=== PATIENT | male | born 1960 | race Caucasian/White ===

== ENCOUNTER 2024-06-19 08:33 | Day surgery (SDC) | payer OTHER, SELFPAY ==
[2024-06-17 14:39] VITALS: BMI 30.7
--- NOTE | 2024-06-18 10:02 | P.CONAN_ITS ---
Documented by User: Norma Miller NP 06/18/24 10:02 HPI - Anesthesia Eval Consult details Narrative: 64yo M for Colonoscopy [facility] Past Medical History Medical History IBS (irritable bowel syndrome) BPH (benign prostatic hyperplasia) Elevated cholesterol HTN (hypertension) Asthma Surgical History Surgical History History of esophagogastroduodenoscopy (EGD) H/O colonoscopy Social History Social History Household Members: Spouse Are you a primary early breastfeeding care specialist to a significant other at home: No Do you presently have visiting nurse or other home services: No Patient Tobacco Use Status: Former Tobacco user Tobacco use type: Cigarette Years Smoked: 25 Smoked in Last 30 Days: No Use of substances other than those prescribed or required for medical reasons: No Have you been hit, kicked, punched, or otherwise hurt by someone within the past year? If so, by whom?: No Are you DNR?: No Advance Directives: No Advance Directives Information Provided: Yes Recently lost weight without trying: No How much weight loss: Not applicable Eating poorly because of decreased appetite: No Nutrition screen score: 0 Nutrition Risks: No Nutritional Risk Poor oral hygiene: Yes (Missing tooth x1) Meds Allergies Allergy/AdvReac Type Severity Reaction Status Date / Time pseudoephedrine Allergy Intermediate Confusion Verified 06/19/24 09:24 [From [facility]] Seasonal Allergies Allergy Unknown Unknown Verified 06/19/24 09:24 Home Medications ?Medication ?Instructions ?Recorded ?Confirmed ?Last Taken ?Type aspirin 81 mg tablet,delayed 81 mg PO DAILY 06/17/24 06/19/24 06/12/24 History release atenolol 25 mg tablet 25 mg PO DAILY 06/17/24 06/19/24 06/19/24 History famotidine 10 mg tablet (Pepcid AC) 10 mg PO BID 06/17/24 06/19/24 Unknown Hist ory multivitamin 1 tab PO DAILY 06/17/24 06/19/24 Unknown History Exam Height,Weight and Vital Signs: Height 5 ft 8 in Weight 91.739 kg Assessment and Plan Assessment Anesthesia Assessment: Chart Reviewed Documented by User: Rose Byers MD 06/19/24 10:16 PMF Past Medical History Medical History IBS (irritable bowel syndrome) BPH (benign prostatic hyperplasia) Elevated cholesterol HTN (hypertension) Asthma Family History Family history of problems with anesthesia: No Surgical History Surgical History History of esophagogastroduodenoscopy (EGD) H/O colonoscopy History of Problems with Anesthesia: No Social History Social History Household Members: Spouse Are you a primary early breastfeeding care specialist to a significant other at home: No Do you presently have visiting nurse or other home services: No Patient Tobacco Use Status: Former Tobacco user Tobacco use type: Cigarette Years Smoked: 25 Smoked in Last 30 Days: No Use of substances other than those prescribed or required for medical reasons: No Have you been hit, kicked, punched, or otherwise hurt by someone within the past year? If so, by whom?: No Are you DNR?: No Advance Directives: No Advance Directives Information Provided: Yes Recently lost weight without trying: No How much weight loss: Not applicable Eating poorly because of decreased appetite: No Nutrition screen score: 0 Nutrition Risks: No Nutritional Risk Poor oral hygiene: Yes (Missing tooth x1) Meds Allergies Allergy/AdvReac Type Severity Reaction Status Date / Time pseudoephedrine Allergy Intermediate Confusion Verified 06/19/24 09: [From [facility]] Seasonal Allergies Allergy Unknown Unknown Verified 06/19/24 09:24 Home Medications ?Medication ?Instructions ?Recorded ?Confirmed ?Last Taken ?Type aspirin 81 mg tablet,delayed 81 mg PO DAILY 06/17/24 06/19/24 06/12/24 History release atenolol 25 mg tablet 25 mg PO DAILY 06/17/24 06/19/24 06/19/24 History famotidine 10 mg tablet (Pepcid AC) 10 mg PO BID 06/17/24 06/19/24 Unknown History multivitamin 1 tab PO DAILY 06/17/24 06/19/24 Unknown History Exam Airway Mallampati Class: II TM Dist: >3cm Neck ROM: Full Heart: rrr Lungs: cta Assessment and Plan Assessment Anesthesia Assessment: Anesthesia Plan Discussed Final Anesthetic Review Family History of Problems with Anesthesia: No History of Problems with Anesthesia: No NPO: Yes ASA Class: II Final Preanesthetic Review: No Changes in Pt Med Stat, Meds/Allgs Chart Reviewed, Consent Obtained/Reviewed and Anes Risks/Benef Reviewed Patient Risk: Low Procedure Risk: Low Anesthetic Plan Anesthetic Plan: MAC: Disposition: Standard PACU
[2024-06-19 09:19] VITALS: BP 188/91; PULSE 65; RESP 16; TEMP 36.6; O2SAT 99; BMI 28.3
[2024-06-19] MEDS: Lactated Ringers 1,000 ML 100 ML IVCONT (09:33)
[2024-06-19 11:22] VITALS: BP 131/74; PULSE 69; RESP 17; TEMP 36.7; O2SAT 98
--- NOTE | 2024-06-19 11:25 | PM.OP ---
Brief Operative Note Date of Service: 06/19/24 Pre-op diagnosis: Screening Post-op diagnosis: other (Colon polyps) Procedure: Colonoscopy to the cecum with biopsies, cold snare polypectomy, and marking with submucosal ink Surgeon: Jayden Quick MD Anesthesia: MAC Was an Director Facilities Maintenance used for this Procedure?: No Estimated blood loss (mL): 2.0 Pathology: other (A. Ascending colon polyp B. Mid-ascending colon polyp) Condition: stable Disposition: PACU
[2024-06-19 11:40] VITALS: BP 144/83; PULSE 64; RESP 18; TEMP 36.7; O2SAT 98
--- NOTE | 2024-06-19 12:01 | OP_ITS ---
DATE OF SERVICE: 06/19/2024 SURGEON: Jayden Quick MD INDICATIONS: The patient presents for followup of personal history of colon polyps, family history of colon cancer, and colorectal cancer screening. Full consent has been obtained from him for this, including risks of bleeding and perforation. PREOPERATIVE DIAGNOSIS: POSTOPERATIVE DIAGNOSIS: PROCEDURE PERFORMED: Colonoscopy to the cecum with cold snare polypectomy x1, biopsies of ascending colon polyp, and submucosal marking with ink. ESTIMATED BLOOD LOSS: COMPLICATIONS: ANESTHESIA: Monitored anesthesia care. ASSISTANTS: SPECIMENS: PREOPERATIVE DIAGNOSES: Colorectal cancer screening, personal history of colon polyps, and family history of colon cancer. POSTOPERATIVE DIAGNOSES: Colorectal cancer screening, personal history of colon polyps, and family history of colon cancer, small ascending colon polyp, flat ascending colon polyp, diverticulosis, internal hemorrhoids. DESCRIPTION OF PROCEDURE: The patient was placed in the left lateral decubitus position. The digital rectal exam revealed no abnormalities. The [employer] video pediatric colonoscope was entered into the rectum and advanced easily to the cecum. Once in the cecum, I did identify normal-appearing cecal pouch with appendiceal orifice and a normal-appearing ileocecal valve. The entire cecum and ileocecal valve appeared normal. There was transillumination of light deep in the right lower quadrant. The scope was then slowly withdrawn assessing all mucosal surfaces carefully. Preparation was excellent. In the ascending colon, there was an approximately 6 mm polyp, which was removed by cold snare polypectomy and recovered by suction. The polypectomy site appeared clean, without any sign of residual polyp nor significant bleeding. In what appeared to be the mid-ascending colon, approximately 4 or 5 folds from the ileocecal valve, was a flat and slightly raised polypoid area encompassing approximately 1/3 to 1/2 the circumference of the bowel along a fold. Part of it was somewhat firm and minimally friable. There was no ulceration. Attempts to snare portions were not successful given its flat nature and broad-base. I did obtain multiple biopsies from it including portions from where it appeared to be rather hard and friable. I then placed a submucosal ink ibis just proximal and just distal to it as well. I did not visualize any other polyps, colitis, nor angiodysplasias in the colon. There was a mild amount of sigmoid diverticulosis. In the rectum, scope was retroflexed visualizing some internal hemorrhoids, but no other pathology. The rectal mucosa appeared normal. The scope was straightened and withdrawn from the patient. He tolerated the procedure well and was returned to recovery area in stable condition. IMPRESSION: 1. Colon polyps. 2. Diverticulosis. 3. Internal hemorrhoids. PLAN: The results of the biopsies will be checked. In regard to the flat ascending colon polyp, we shall await the biopsies and then decide about further options of removing it, i.e., either surgically or by repeat colonoscopy. He was advised not to use any aspirin or NSAIDs for 1 week. This has been discussed with his . In regard to his reflux, he reports he is using [id number] Pepcid, but without any relief. I shall send over a prescription for a PPI for him to try. His upper endoscopy in 2019 at [facility] was unremarkable according to the report. MD GEMMA Pina/YESENIA / [id number] MTDD
== END 2024-06-19 12:00 | disposition home or self-care (01) ==
PROVIDERS: PCP Internal Medicine; Visit Provider Internal Medicine
PROC: 0DJD8ZZ Inspection of Lower Intestinal Tract, Via Natural or Artificial Opening Endoscopic (ICD-10-PCS; CPT 45378; principal; 2024-06-19 09:50)
DX: Z12.11 Encounter for screening for malignant neoplasm of colon (principal); Z80.0 Family history of malignant neoplasm of digestive organs; Z86.010 Personal history of colon polyps; D12.2 Benign neoplasm of ascending colon; K57.30 Diverticulosis of large intestine without perforation or abscess without bleeding; K64.8 Other hemorrhoids; K58.1 Irritable bowel syndrome with constipation; K21.9 Gastro-esophageal reflux disease without esophagitis; K29.50 Unspecified chronic gastritis without bleeding; I10 Essential (primary) hypertension; E78.5 Hyperlipidemia, unspecified; J45.909 Unspecified asthma, uncomplicated; Z79.82 Long term (current) use of aspirin; Z79.899 Other long term (current) drug therapy; Z88.8 Allergy status to other drugs, medicaments and biological substances; Z87.891 Personal history of nicotine dependence
CPT/HCPCS: 45385; 45380; 45381; 88305; J2704